=== PATIENT | female | born 1945 | race Caucasian/White ===

== ENCOUNTER → 2016-08-22 | Outpatient (CLI) | payer MEDICARE ==
--- NOTE | 2016-08-22 16:47 | US ---
EXAM DESCRIPTION: US RETROPERITONEUM CLINICAL HISTORY: 71 y/o F, RT COMPLEX RENAL CYST COMPARISON: None available. Prior studies from June 27, 2015 and June 25, 2014 each contain only 1 image. FINDINGS: The right kidney measures 9.7 cm in length. There is no right-sided hydronephrosis or obstructing nephrolithiasis. There is no right renal cortical thinning or perinephric fluid. There are several uncomplicated right renal cysts, the largest measuring 1.2 cm diameter period The left kidney measures 10.2 cm in length. There is no left-sided hydronephrosis or obstructing nephrolithiasis. There is no left renal cortical thinning or perinephric fluid. There are several uncomplicated left renal cysts, the largest measuring 1 cm diameter period The bladder is not visualized. The abdominal aorta and IVC are not well visualized on this exam. IMPRESSION: Small uncomplicated bilateral renal cysts, otherwise unremarkable exam Electronically signed by: Eb Parra DO 08/22/2016 16:45
== END | disposition home or self-care (01) ==
LOC: US 14:10
PROVIDERS: ATTEND Urology
DX: N28.1 Cyst of kidney, acquired (principal)

== ENCOUNTER → 2016-10-24 | Outpatient (CLI) | payer MEDICARE | LOC: GMAJ 10:28 | PROVIDERS: ATTEND Family Medicine | DX: E03.9 Hypothyroidism, unspecified (principal) ==

== ENCOUNTER → 2016-10-29 | Outpatient (CLI) | payer MEDICARE ==
--- NOTE | 2016-10-29 17:27 | MAM ---
History: Well woman exam. Date of exam: 10/29/2016 Services provided: Bilateral full field digital screening mammography. CAD, the images were reviewed with R2 computer aided detection. FINDINGS: Glandular tissue is scattered glandular contour. Comparison with 2014 study. No dominant mass, architectural distortion or clustered microcalcification. Stable mammographic asymmetry lower medial left breast. IMPRESSION: Benign exam Recommendation: Routine annual mammography BIRAD CATEGORY: 2 BENIGN Electronically signed by: Lia Lawton MD 10/29/2016 5:26 PM CDT
== END | disposition home or self-care (01) ==
LOC: MAMMO 12:54
PROVIDERS: ATTEND Family Medicine
DX: Z12.31 Encounter for screening mammogram for malignant neoplasm of breast (principal)

== ENCOUNTER → 2017-08-30 | Outpatient (CLI) | payer MEDICARE ==
--- NOTE | 2017-09-02 07:40 | CT ---
EXAM DESCRIPTION: Chest w/o Contrast : Computed Tomography. CLINICAL HISTORY: ACUTE UPPER RESPIRATORY INFECTION, UNSPECIFIED COMPARISON: Renal ultrasound 06/27/2015. TECHNIQUE: Spiral-axial scans at 5.0 mm intervals through the lungs and thorax without IV contrast. 2.5 mm lung algorithm axial reconstructions. Coronal and sagittal 2.0 Mm reconstructions. No adverse reactions. Total Exam DLP: 694.78 mGy-cm. This exam was performed according to our departmental dose-optimization program which includes automated exposure control, adjustment of the mA and/or kV according to patient size and/or use of iterative reconstruction technique; to reduce radiation dose to as low as reasonably achievable (ALARA). FINDINGS: Minimal groundglass densities and lateral right lower lobe which could represent early infiltrate or atelectasis. Emphysematous bleb also in the right lower lobe. Minimal bilateral perihilar peribronchial wall cuffing. Parenchymal scars left lower lobe. No abnormal nodules or masses bilaterally. No pleural effusion or pneumothorax. Evaluation of soft tissue Limited due to lack of IV contrast. No large soft tissue masses in the base of the neck, axilla, mediastinum and bilateral hilum. Small lymph nodes are noted. Atherosclerotic calcifications proximal brachiocephalic vessels and thoracic aorta. Calcification trachea and main bronchi. Normal density and size spleen and adrenal glands. Gallbladder contracted. 2 cm hypodensity in the right kidney with Hounsfield density +13. The included peritoneal cavity demonstrates no ascites. Multiple levels of endplate ridging and disc space narrowing and degenerative cysts signal in the thoracic spine. 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 No destructive bone lesions. IMPRESSION: Mild emphysematous changes in the lungs. No abnormal nodules, no masses. Atelectasis versus early infiltrate in the right lower lobe. Degenerative changes in the shoulders bilaterally and spondylosis of the thoracic spine. Cyst in the right kidney. Multiple cysts seen in the right kidney on prior ultrasound. Electronically signed by: Felix Champion MD 09/02/2017 7:39 AM TEXTURE ARTIST
== END ==
LOC: CT 12:50
PROVIDERS: ATTEND Physician Assistant
DX: J06.9 Acute upper respiratory infection, unspecified (principal)

== ENCOUNTER → 2017-09-02 | Outpatient (CLI) | payer MEDICARE | LOC: GMAJ 11:34 | PROVIDERS: ATTEND Family Medicine | DX: E03.9 Hypothyroidism, unspecified (principal) ==

== ENCOUNTER → 2017-11-11 | Outpatient (CLI) | payer MEDICARE | LOC: SL 19:25 | PROVIDERS: ATTEND Family Medicine | DX: G47.33 Obstructive sleep apnea (adult) (pediatric) (principal); R09.02 Hypoxemia ==

== ENCOUNTER → 2017-11-19 | Outpatient (CLI) | payer MEDICARE ==
--- NOTE | 2017-11-21 10:54 | MAM ---
EXAM DESCRIPTION: 3D Screening BILATERAL : Digital Mammography. CLINICAL HISTORY: 72 years Female SCREENING . No complaints. Mother with breast cancer. Postmenopausal. Has taken HRT 5 or more years ago.. COMPARISON: 2-D digital screening bilateral study 10/29/2016. Report from prior examination also reviewed. TECHNIQUE: Bilateral CC and MLO projection full-field images, 3-D tomosynthesis digital mammographic technique. Also bilateral synthesized CC/ MLO full-field images. CAD not utilized. FINDINGS: The breast parenchymal density pattern is: Almost entirely fatty. No skin thickening or nipple retraction right axillary lymph node. Bilateral microcalcifications. No focal, stellate mass or density, focal asymmetry , and no suspicious microcalcifications bilaterally. Stable mammograms compared to prior study, taking into account differences in mammographic technique IMPRESSION: BI-RADS CATEGORY: 2 - BENIGN FINDINGS. FOLLOW UP: Routine digital bilateral screening, one year interval from November 2017. Written communication explaining the IMPRESSION and follow-up, will be mailed to the patient and referring health care provider. According to the [employer], yearly mammograms are recommended starting at age 40 and continuing as long as a woman is in good health. Any breast change noted on a breast self-exam should be reported promptly to the patient's healthcare provider. Breast MRI is recommended for women with an approximately 20-25% or greater lifetime risk of breast cancer, including women with a strong family history of breast or ovarian cancer and women who have been treated for Hodgkin's disease. A negative mammographic report should not delay tissue diagnosis in patients with significant clinical history or physical findings. Extremely dense breast tissue limits the sensitivity of digital mammography. Electronically signed by: Felix Champion MD 11/21/2017 10:53 AM CDT
== END ==
LOC: MAMMO 16:13
PROVIDERS: ATTEND Family Medicine
DX: Z12.31 Encounter for screening mammogram for malignant neoplasm of breast (principal)

== ENCOUNTER → 2018-10-06 | Outpatient (CLI) | payer MEDICARE | LOC: GMAJ 10:46 | PROVIDERS: ATTEND Family Medicine | DX: E03.9 Hypothyroidism, unspecified (principal) ==

== ENCOUNTER → 2018-11-17 | Outpatient (CLI) | payer MEDICARE | LOC: GMAJ 10:24 | PROVIDERS: ATTEND Family Medicine | DX: E03.9 Hypothyroidism, unspecified (principal) ==

== ENCOUNTER → 2020-01-01 | Outpatient (CLI) | payer MEDICARE ==
--- NOTE | 2020-01-06 16:05 | MAM ---
History: Well woman exam. Date of exam: 01/01/2020 Services provided: Bilateral full field digital screening mammography with anselmo. CAD, the images were reviewed with R2 computer aided detection. FINDINGS: Glandular tissue is almost entirely fatty . Comparison with films dating to 2016 no dominant mass, architectural distortion or clustered microcalcification. Small benign-appearing retroglandular nodule on the left is not previously demonstrated but appears positional and maintains benign appearance. IMPRESSION: Benign exam Recommendation: Annual mammography BIRAD CATEGORY: 2 BENIGN FINDINGS NEGATIVE Exam findings and recommendations will be sent to the patient. Electronically signed by: Lia Lawton MD 01/06/2020 4:04 PM CDT Workstation: [id number]
== END ==
LOC: MAMMO 09:00
PROVIDERS: ATTEND Family Medicine
DX: Z12.31 Encounter for screening mammogram for malignant neoplasm of breast (principal)

== ENCOUNTER → 2020-01-19 | Outpatient (CLI) | payer MEDICARE | LOC: GMAJ 10:29 | PROVIDERS: ATTEND Family Medicine | DX: E03.8 Other specified hypothyroidism (principal) ==

== ENCOUNTER → 2020-05-30 | Outpatient (CLI) | payer MEDICARE | LOC: GMAJ 11:56 | PROVIDERS: ATTEND Family Medicine | DX: E03.9 Hypothyroidism, unspecified (principal); Z79.899 Other long term (current) drug therapy ==